=== PATIENT | male | born 1980 | race Caucasian/White ===

== ENCOUNTER 2023-04-26 05:35 | Emergency (ER) | payer BC ==
[~2023-04-26] VITALS: Ht 182.9 cm; Wt 131.5 kg
[~2023-04-26 05:35] MED LIST: CYCL10TA9 PO; HYDR-34 PO; METH4TAB PO
[2023-04-26 05:55] VITALS: BP 188/118
[2023-04-26] MEDS ORDERED: morphine INJ 10 MG/ML 1ML (SYR OR VIAL) IVP STA ×3 (05:59→08:03)
[2023-04-26] MEDS ORDERED: FAMOTIDINE 20 MG (PEPCID) TABLET PO STA (05:59)
[2023-04-26] MEDS ORDERED: LIDOCAINE 2% VISCOUS 15 ML UDC PO ONE (06:00)
[2023-04-26] MEDS ORDERED: ONDANSETRON 4 MG/2 ML (SDV) Z0FRAN IVP ONE (06:00)
[2023-04-26] MEDS ORDERED: ANTACID SUSP 30 ML UDC (MYLANTA) PO ONE (06:00)
--- NOTE | 2023-04-26 06:03 | ED Abdominal Pain ---
General Chief Complaint: Abdominal/GI Problems Stated Complaint: ABD PAIN Source of Information: Patient Exam Limitations: No Limitations History of Present Illness Date Seen by Provider: Apr 26, 2023 Time Seen by Provider: 05:49 Initial Comments 42-year-old male with no pertinent past medical history coming in due to epigastric abdominal pain. Is sharp, goes through to his back, started around 1 AM waking him up. He has never had pain like this before. The pain is constant and severe. Associated with nausea but no vomiting. Had a normal bowel movement yesterday. Is unsure if he is passing flatus today. Denies any fever, chest pain, shortness of breath, focal weakness, numbness, rash, dysuria, testicle pain, or any other concerns. Denies any prior history of abdominal surgeries. He drinks alcohol once maybe every month and has not had any in several weeks, only takes NSAIDs rarely and none recently. Denies any history of gallbladder issues. Denies any history of pancreatitis. Allergies and Home Medications Allergies Coded Allergies: No Known Drug Allergies (Unverified , 06/07/10) Patient Home Medication List Home Medication List Reviewed: Yes Cyclobenzaprine Hcl (Cyclobenzaprine Hcl) 10 Mg Tablet, 1 EACH PO Q8HR PRN Prescribed by: LAURA MONTEJO MD on 11/10/10 1643 Hydrocodone Bit/Acetaminophen (Lortab 7.5 Mg Tablet) 1 Ea Tablet, 1 EA PO Q 4 - 6 HR PRN Prescribed by: LAURA MNOTEJO MD on 11/10/10 1643 Methylprednisolone (Medrol Dose Pack) 4 Mg/Dose-Pack Tab.ds.pk, 0 PO UD Prescribed by: MAGDA BREWER on 09/15/13 1030 Review of Systems Review of Systems Constitutional: No fever EENTM: No Symptoms Reported Respiratory: No Symptoms Reported Cardiovascular: No Symptoms Reported Gastrointestinal: See HPI Genitourinary: No Symptoms Reported Musculoskeletal: no symptoms reported Skin: no symptoms reported Psychiatric/Neurological: No Symptoms Reported Endocrine: No Symptoms Reported Hematologic/Lymphatic: No Symptoms Reported Past Zyqskub-Bgqnsy-Tfdpcn Hx Patient Social History Tobacco Use?: No Use of E-Cig and/or Vaping dev: Yes E-Cig or Vaping type used: Nicotine Substance use?: No Alcohol Use?: Yes Alcohol Frequency: Rarely Immunizations Up To Date Tetanus Booster (TDap): Less than 5yrs Past Medical History Surgery/Hospitalization HX: no h/o abd surgeries Fractures Physical Exam Vital Signs Vital Signs - First Documented 04/26/23 05:55 Temp 36.9 Pulse 81 Resp 16 B/P (MAP) 188/118 (141) Pulse Ox 97 O2 Delivery Room Air Capillary Refill : Height/Weight/BMI Height: '" Weight: 227lbs. oz. 102.008203wv; BMI Method:Stated General Appearance: WD/WN, mild distress HEENT: PERRL/EOMI, normal ENT inspection, pharynx normal Neck: non-tender, full range of motion, supple, normal inspection Respiratory: chest non-tender, lungs clear, normal breath sounds, no respiratory distress, no accessory muscle use Cardiovascular: regular rate, rhythm, no edema, no murmur Gastrointestinal: normal bowel sounds; No distended, No rebound; tenderness, other (Voluntary guarding) Extremities: normal range of motion, non-tender, normal inspection, no pedal edema, no calf tenderness, normal capillary refill Back: normal inspection, no CVA tenderness Neurologic/Psychiatric: no motor/sensory deficits, alert, normal mood/affect Skin: normal color, warm/dry Progress/Results/Core Measures Results/Orders Lab Results Laboratory Tests Test 04/26/23 06:02 04/26/23 06:29 Range/Units White Blood Count 13.8 H 4.3-11.0 10^3/uL Red Blood Count 5.32 4.30-5.52 10^6/uL Hemoglobin 16.1 13.3-17.7 g/dL Hematocrit 47 40-54 % Mean Corpuscular Volume 88 80-99 fL Mean Corpuscular Hemoglobin 30 25-34 pg Mean Corpuscular Hemoglobin Concent 34 32-36 g/dL Red Cell Distribution Width 12.5 10.0-14.5 % Platelet Count 291 130-400 10^3/uL Mean Platelet Volume 9.2 9.0-12.2 fL Immature Granulocyte % (Auto) 0 % Neutrophils (%) (Auto) 81 H 42-75 % Lymphocytes (%) (Auto) 12 12-44 % Monocytes (%) (Auto) 5 0-12 % Eosinophils (%) (Auto) 1 0-10 % Basophils (%) (Auto) 0 0-10 % Neutrophils # (Auto) 11.2 H 1.8-7.8 10^3/uL Lymphocytes # (Auto) 1.7 1.0-4.0 10^3/uL Monocytes # (Auto) 0.7 0.0-1.0 10^3/uL Eosinophils # (Auto) 0.1 0.0-0.3 10^3/uL Basophils # (Auto) 0.1 0.0-0.1 10^3/uL Immature Granulocyte # (Auto) 0.1 0.0-0.1 10^3/uL Prothrombin Time 13.1 12.2-14.7 SEC INR Comment 1.0 0.8-1.4 Sodium Level 137 135-145 MMOL/L Potassium Level 4.2 3.6-5.0 MMOL/L Chloride Level 102 98-107 MMOL/L Carbon Dioxide Level 24 21-32 MMOL/L Anion Gap 11 5-14 MMOL/L Blood Urea Nitrogen 12 7-18 MG/DL Creatinine 1.09 0.60-1.30 MG/DL Estimat Glomerular Filtration Rate 86 BUN/Creatinine Ratio 11 Glucose Level 123 H 70-105 MG/DL Calcium Level 9.6 8.5-10.1 MG/DL Corrected Calcium 8.5-10.1 MG/DL Total Bilirubin 0.5 0.1-1.0 MG/DL Aspartate Amino Transf (AST/SGOT) 26 5-34 U/L Alanine Aminotransferase (ALT/SGPT) 50 0-55 U/L Alkaline Phosphatase 81 40-136 U/L Total Protein 8.3 H 6.4-8.2 GM/DL Albumin 4.7 H 3.2-4.5 GM/DL Lipase 27 8-78 U/L Troponin I < 0.028 <0.028 NG/ML My Orders Orders - DIPESH HUYNH MD Ondansetron Injection (Zofran Injectio (04/26/23 06:00) Lidocaine 2% Viscous 15 Ml (Xylocaine Vi (04/26/23 06:00) Famotidine Tablet (Pepcid Tablet) (04/26/23 05:59) Antacid Suspension (Mylanta Suspension (04/26/23 06:00) Ed Iv/Invasive Line Start (04/26/23 05:59) Comprehensive Metabolic Panel (04/26/23 05:59) Lipase (04/26/23 05:59) Cbc With Automated Diff (04/26/23 05:59) Ct Abdomen/Pelvis W (04/26/23 05:59) Morphine Injection (Morphine Injection (04/26/23 05:59) Protime With Inr (04/26/23 05:59) Morphine Injection (Morphine Injection (04/26/23 06:24) Ekg Tracing (04/26/23 06:26) Troponin I Dragan (04/26/23 06:26) Iohexol Injection (Omnipaque 350 Mg/Ml 1 (04/26/23 07:00) Received Contrast (Hold Metformin- Contr (04/26/23 07:00) Sodium Chloride Flush (Catheter Flush Sy (04/26/23 07:00) Ns (Ivpb) (Sodium Chloride 0.9% Ivpb Bag (04/26/23 07:00) Ns Iv 1000 Ml (Sodium Chloride 0.9%) (04/26/23 07:27) Ns Iv 1000 Ml (Sodium Chloride 0.9%) (04/26/23 07:31) Morphine Injection (Morphine Injection (04/26/23 08:03) Medications Given in ED Current Medications Medications Dose Ordered Sig/Christoph Route Start Time Stop Time Status Last Admin Dose Admin Al Hydrox/Mg Hydrox/Simethicone 30 ml ONCE ONCE PO 04/26/23 06:00 04/26/23 06:01 DC 04/26/23 06:09 30 ML Iohexol 100 ml ONCE ONCE IV 04/26/23 07:00 04/26/23 07:01 DC 04/26/23 07:04 100 ML Lidocaine HCl 15 ml ONCE ONCE PO 04/26/23 06:00 04/26/23 06:01 DC 04/26/23 06:09 15 ML Ondansetron HCl 4 mg ONCE ONCE IVP 04/26/23 06:00 04/26/23 06:01 DC 04/26/23 06:08 4 MG Sodium Chloride 10 ml NEEDED PRN IV 04/26/23 07:00 04/26/23 07:05 10 ML Sodium Chloride 100 ml ONCE ONCE IV 04/26/23 07:00 04/26/23 07:01 DC 04/26/23 07:05 80 ML Vital Signs/I&O 04/26/23 04/26/23 04/26/23 05:55 07:12 08:03 Temp 36.9 Pulse 81 89 78 Resp 16 18 18 B/P (MAP) 188/118 (141) 175/107 (129) 178/108 (131) Pulse Ox 97 94 94 O2 Delivery Room Air Room Air Room Air Progress Progress Note : Progress Note 42-year-old male with above history presenting for epigastric pain. ABCs were intact and vitals are stable on presentation. Physical exam with epigastric tenderness with voluntary guarding but no signs of peritonitis. EKG ordered and interpreted by me showing no acute ischemic changes. An IV was placed and basic labs were obtained and were significant for a slightly elevated white blood cell count, normal creatinine, normal liver function test, negative troponin, n egative lipase. Clinically not consistent with ACS, especially given the abdominal pain. CT abdomen pelvis ordered and interpreted by me showing no obvious inflammatory changes, negative per the radiologist. The patient received IV fluids, Zofran, and multiple doses of IV morphine with frequent reassessment due to continued pain. Repeat abdominal exam reassuring with no signs of peritonitis. I believe the patient is stable for discharge with outpatient follow-up. This is likely gastritis versus ulcer versus some other [id number]-dlyi-anhwallelym cause for his pain. He was sent home with strict return precautions with prescription pain medication. Initial ECG Impression Date: Apr 26, 2023 Initial ECG Impression Time: 05:50 Initial ECG Rate: 0630 Initial ECG Rhythm: Normal Sinus Comment Narrow QRS, normal axis, no significant ST changes or T wave abnormalities Diagnostic Imaging Diagonstic Imaging: CT (abd/pelvis) Comments [facility] [place], [place] NAME: CHRISTIE SANDOVAL [facility] REC#: [id number] PT STATUS: REG ER : 1980 PHYSICIAN: DIPESH HUYNH MD ADMIT DATE: 04/26/23/ER Signed Date of Exam:04/26/23 CT ABDOMEN/PELVIS W CT ABDOMEN/PELVIS W TECHNIQUE: Multiple contiguous axial images were obtained through the abdomen and pelvis after administration of intravenous contrast. All CT scans use one or more of the following dose optimizing techniques: automated exposure control, MA and/or KvP adjustment based on patient size and exam type or iterative reconstruction. INDICATION: Central abdominal pain. COMPARISON: None available. FINDINGS: Lower chest: The lung bases are clear. No pericardial or pleural effusion. Peritoneum: No free intraperitoneal air or fluid. Liver and biliary system: Severe hepatic steatosis with sites of fatty sparing along the falciform ligament and gallbladder fossa. The gallbladder is normal. No biliary duct dilation. Spleen and Pancreas: Spleen is normal. The pancreas enhances normally without mass lesion or peripancreatic inflammatory changes. Adrenals: Normal. tract: The kidneys enhance normally without suspicious mass or obstruction. Urinary bladder is distended without wall thickening. Prostate is normal. GI tract: Stomach is filled with fluid and has no wall thickening. No bowel obstruction. No pericolonic inflammatory changes. Normal appendix. Vasculature and Lymph nodes: Normal caliber aorta. No abdominal or pelvic lymphadenopathy. Musculoskeletal: No concerning osseous lesion. IMPRESSION: 1. No acute obstructive or inflammatory process. 2. Severe hepatic steatosis. Dictated by: Dictated on workstation # [id number] Dict: 04/26/23 0700 Trans: 04/26/23701 [facility] [id number] Interpreted by: HEDY VENTURA MD Electronically signed by: HEDY VENTURA MD 04/26/23701 Departure Impression Primary Impression: Epigastric pain Disposition: HOME, SELF-CARE Condition: Stable Departure-Patient Inst. Decision time for Depature: 08:30 Referrals: CHRISTIE ZIMMER DO NO,LOCAL PHYSICIAN (PCP) Primary Care Physician Patient Instructions: Abdominal Pain, Adult ED, Gastritis ED Add. Discharge Instructions: We are not seeing any evidence of significant concerns where you are hurting based on your labs and your imaging. Possible you are dealing with a developing stomach ulcer versus gastritis. We will start you on a few different medicines to help with the pain. Please follow-up with a doctor of your choosing, you may need a GI specialist in the near future. Dr. Zimmer is somebody that can evaluate you for this pain. His number is in this paperwork Scripts Ondansetron (Ondansetron Odt) 4 Mg Tab.rapdis 4 MG SL Q6H PRN for NAUSEA/VOMITING for 5 Days, #20 TAB Prov: DIPESH HUYNH MD 04/26/23 Pantoprazole Sodium (Protonix) 40 Mg Tablet. 40 MG PO DAILY for 30 Days, #30 TAB Prov: DIPESH HUYNH MD 04/26/23 Hydrocodone/Acetaminophen (Hydrocodone-Acetamin 5-325 mg) 5 Mg-325 Mg Tablet 1 TAB PO Q6H PRN for PAIN-MODERATE (5-7) for 3 Days, #12 TAB Prov: DIPESH HUYNH MD 04/26/23 Work/School Note: Work Release Form Date Seen in the Emergency Department: Apr 26, 2023 Return to Work: Apr 28, 2023 Restrictions: Return-No Vomiting(24hrs) DIPESH HUYNH MD Apr 26, 2023 06:03
[2023-04-26 06:15] LABS: BASOPHILS # (AUTO) 0.1 10^3/uL (0.0-0.1); BASOPHILS % (AUTO) 0 % (0-10); EOSINOPHILS # (AUTO) 0.1 10^3/uL (0.0-0.3); EOSINOPHILS % (AUTO) 1 % (0-10); HEMATOCRIT 47 % (40-54); HEMOGLOBIN 16.1 g/dL (13.3-17.7); LYMPHOCYTES # (AUTO) 1.7 10^3/uL (1.0-4.0); LYMPHOCYTES % (AUTO) 12 % (12-44); MEAN CORPUSCULAR HEMOGLOBIN 30 pg (25-34); MEAN CORPUSCULAR HGB CONC 34 g/dL (32-36); MEAN CORPUSCULAR VOLUME 88 fL (80-99); MEAN PLATELET VOLUME 9.2 fL (9.0-12.2); MONOCYTES # (AUTO) 0.7 10^3/uL (0.0-1.0); MONOCYTES % (AUTO) 5 % (0-12); NEUTROPHILS # (AUTO) 11.2 10^3/uL (1.8-7.8); NEUTROPHILS % (AUTO) 81 % (42-75); PLATELET COUNT 291 10^3/uL (130-400); WHITE BLOOD COUNT 13.8 10^3/uL (4.3-11.0)
[2023-04-26 06:22] LABS: PROTHROMBIN TIME PATIENT 13.1 SEC (12.2-14.7)
[2023-04-26 06:35] LABS: ALBUMIN 4.7 GM/DL (3.2-4.5); ALKALINE PHOSPHATASE 81 U/L (40-136); BILIRUBIN,TOTAL 0.5 MG/DL (0.1-1.0); BUN/CREATININE RATIO 11; CALCIUM 9.6 MG/DL (8.5-10.1); CARBON DIOXIDE 24 MMOL/L (21-32); CHLORIDE 102 MMOL/L (98-107); CREATININE SERUM 1.09 MG/DL (0.60-1.30); GFR ESTIMATED 86; GLUCOSE 123 MG/DL (70-105); POTASSIUM 4.2 MMOL/L (3.6-5.0); SODIUM 137 MMOL/L (135-145); TOTAL PROTEIN 8.3 GM/DL (6.4-8.2)
[2023-04-26] MEDS ORDERED: NS 100 ML (IVPB) BAG IV ONE (07:00)
[2023-04-26] MEDS ORDERED: HOLD METFORMIN - RECEIVED CONTRAST 20 ML VIAL IV SCH (07:00)
[2023-04-26] MEDS ORDERED: CATHETER FLUSH 10 ML SYR IV PRN (07:00)
[2023-04-26] MEDS ORDERED: IOHEXOL 350 MG/ML 100 ML (OMNIPAQUE 350) VIAL IV ONE (07:00)
--- NOTE | 2023-04-26 07:04 | Diagnostic Imaging Report ---
CT ABDOMEN/PELVIS W TECHNIQUE: Multiple contiguous axial images were obtained through the abdomen and pelvis after administration of intravenous contrast. All CT scans use one or more of the following dose optimizing techniques: automated exposure control, MA and/or KvP adjustment based on patient size and exam type or iterative reconstruction. INDICATION: Central abdominal pain. COMPARISON: None available. FINDINGS: Lower chest: The lung bases are clear. No pericardial or pleural effusion. Peritoneum: No free intraperitoneal air or fluid. Liver and biliary system: Severe hepatic steatosis with sites of fatty sparing along the falciform ligament and gallbladder fossa. The gallbladder is normal. No biliary duct dilation. Spleen and Pancreas: Spleen is normal. The pancreas enhances normally without mass lesion or peripancreatic inflammatory changes. Adrenals: Normal. tract: The kidneys enhance normally without suspicious mass or obstruction. Urinary bladder is distended without wall thickening. Prostate is normal. GI tract: Stomach is filled with fluid and has no wall thickening. No bowel obstruction. No pericolonic inflammatory changes. Normal appendix. Vasculature and Lymph nodes: Normal caliber aorta. No abdominal or pelvic lymphadenopathy. Musculoskeletal: No concerning osseous lesion. IMPRESSION: 1. No acute obstructive or inflammatory process. 2. Severe hepatic steatosis. Dictated by: Dictated on workstation # [id number]
[2023-04-26] MEDS ORDERED: NS IV 1000 ML 1,000 ML IV STA (07:27)
[2023-04-26] MEDS: NS IV 1000 ML 1,000 ML IV STA ×2 (07:33→08:21)
[2023-04-26 07:53] LABS: ALANINE AMINOTRANSFERASE 50 U/L (0-55)
[2023-04-26 08:19] LABS: LIPASE 27 U/L (8-78)
[2023-04-26] MEDS ORDERED: PANT40TA2 PO (08:22)
[2023-04-26] MEDS ORDERED: ACHD5005 PO (08:22)
[2023-04-26] MEDS ORDERED: ONDA4TAB11 SL (08:22)
== END 2023-04-26 09:28 | disposition home or self-care (01) ==
LOC: EDUNIT# 05:35 → ER 05:37
DX: R10.13 Epigastric pain (principal); R11.0 Nausea; F17.290 Nicotine dependence, other tobacco product, uncomplicated
CPT/HCPCS: 36415; 74177; 80053; 83690; 84484; 85025; 85610; 93005